=== PATIENT | female | born 1985 ===

== ENCOUNTER 2023-09-16 09:53 | Outpatient (CLI) | payer OTHER ==
[2023-09-16 10:14] LABS: URINE APPEARANCE Clear; URINE BILIRRUBIN Negative (NEGATIVE); URINE BLOOD Negative; URINE COLOR Yellow; URINE GLUCOSE Negative (NEGATIVE); URINE LEUKOCYTE Trace; URINE NITRATE Negative; URINE PROTEIN Negative (NEGATIVE)
[2023-09-16 10:17] LABS: URINE BACTERIA 2188.6 uL (0.0-1933); URINE EPITHELIAL CELLS 33.9 uL (0.0-38.8); URINE RBC 6.1 uL (0.0-20.8); URINE WBC 23.1 uL (0.0-23.2)
[2023-09-16 10:23] LABS: HEMATOCRIT 37.9 % (36.0-45.00); HEMOGLOBIN 12.7 g/dL (12.0-15.00); MEAN CELL VOLUME 77.5 fL (80.00-100.00); MEAN CORPUSCULAR HEMOGLOBIN 26.1 pg (27.00-32.0); MEAN CORPUSCULAR HGB CONC 33.6 g/dl (32.0-36.0); PLATELET COUNT 332 K/uL (150-450); RED BLOOD COUNT 4.89 M/uL (4.00-6.00); RED CELL DISTRIBUTION WIDTH 14.9 % (11.5-14.5)
[2023-09-16 11:36] LABS: ALBUMIN 3.9 gm/dL (3.4-5.0); BILIRUBIN TOTAL 0.38 mg/dL (0.3-1.2); CALCIUM 8.7 mg/dL (8.5-10.1); CHOL HDL RATIO 3.4 (0-5.0); CREATININE SERUM 0.69 mg/dL (0.55-1.02); GFR 96.27; GLOBULINA 3.5 G/DL (2.4-3.5); POTASSIUM 4.42 mEq/L (3.5-5.1); TOTAL PROTEIN 7.4 gm/dL (6.4-8.2); TSH 0.716 uIU/mL (0.358-3.74)
[2023-09-19 05:05] LABS: CA 125 10.9 U/mL (0.0-38.1); FOLLICLE STIMULATING HORMONE 4.9 mIU/mL (.)
== END 2023-09-16 09:54 | disposition home or self-care (01) ==
LOC: LAB 09:53
DX: E03.9 Hypothyroidism, unspecified (principal); E16.2 Hypoglycemia, unspecified; E78.5 Hyperlipidemia, unspecified; E55.9 Vitamin D deficiency, unspecified; Z12.11 Encounter for screening for malignant neoplasm of colon; N91.1 Secondary amenorrhea; E22.1 Hyperprolactinemia

== ENCOUNTER 2023-10-11 07:21 | Outpatient (CLI) | payer OTHER | END 2023-10-11 07:25 | disposition home or self-care (01) | LOC: SONOGRAMA 07:21 | PROVIDERS: ATTEND Specialist | DX: D35.2 Benign neoplasm of pituitary gland (principal) ==

== ENCOUNTER 2023-12-29 09:14 | Outpatient (CLI) | payer OTHER ==
[2023-12-29 09:50] LABS: HEMATOCRIT 38.2 % (36.0-45.00); HEMOGLOBIN 12.8 g/dL (12.0-15.00); MEAN CELL VOLUME 76.7 fL (80.00-100.00); MEAN CORPUSCULAR HEMOGLOBIN 25.7 pg (27.00-32.0); MEAN CORPUSCULAR HGB CONC 33.5 g/dl (32.0-36.0); PLATELET COUNT 337 K/uL (150-450); RED BLOOD COUNT 4.97 M/uL (4.00-6.00); RED CELL DISTRIBUTION WIDTH 15.5 % (11.5-14.5)
[2023-12-29 09:52] LABS: URINE APPEARANCE Clear; URINE BILIRRUBIN Negative (NEGATIVE); URINE BLOOD Negative; URINE COLOR Yellow; URINE GLUCOSE Negative (NEGATIVE); URINE KETONE Negative (NEGATIVE); URINE LEUKOCYTE Negative; URINE NITRATE Negative; URINE PROTEIN Negative (NEGATIVE)
[2023-12-29 09:56] LABS: URINE BACTERIA 575.8 uL (0.0-1933); URINE EPITHELIAL CELLS 7.8 uL (0.0-38.8); URINE RBC 4.2 uL (0.0-20.8); URINE WBC 14.1 uL (0.0-23.2)
[2023-12-29 10:10] LABS: INR 1.01; PARTIAL THROMBOPLASTIN TIME 29.3 SECONDS (22.0-34.0)
[2023-12-29 10:20] LABS: URINE CAST 0.15 uL (0.0-1.40)
[2023-12-29 10:27] LABS: CALCIUM 9.3 mg/dL (8.5-10.1); CREATININE SERUM 0.65 mg/dL (0.55-1.02); GFR 103.13; POTASSIUM 4.12 mEq/L (3.5-5.1)
== END 2023-12-29 09:15 | disposition home or self-care (01) ==
LOC: LAB 09:14
PROVIDERS: ATTEND Specialist
DX: E03.9 Hypothyroidism, unspecified (principal); E16.2 Hypoglycemia, unspecified; E78.5 Hyperlipidemia, unspecified; E55.9 Vitamin D deficiency, unspecified; Z12.11 Encounter for screening for malignant neoplasm of colon; N91.1 Secondary amenorrhea; E22.1 Hyperprolactinemia; J20.9 Acute bronchitis, unspecified

== ENCOUNTER 2024-05-27 08:44 | Outpatient (CLI) | payer OTHER ==
[2024-05-27 09:53] LABS: PH,URINE 6.5 (5.0-8.0); URINE APPEARANCE Clear; URINE BILIRRUBIN Negative (NEGATIVE); URINE BLOOD Moderate; URINE COLOR Yellow; URINE GLUCOSE Negative (NEGATIVE); URINE KETONE Negative (NEGATIVE); URINE LEUKOCYTE Negative; URINE NITRATE Negative; URINE PROTEIN Negative (NEGATIVE)
[2024-05-27 09:56] LABS: URINE BACTERIA 15.9 uL (0.0-1933); URINE EPITHELIAL CELLS 10.1 uL (0.0-38.8); URINE RBC 357.6 uL (0.0-20.8); URINE WBC 13.2 uL (0.0-23.2)
[2024-05-27 10:05] LABS: URINE CAST 0.29 uL (0.0-1.40)
[2024-05-27 10:26] LABS: HEMATOCRIT 39.4 % (36.0-45.00); HEMOGLOBIN 13.3 g/dL (12.0-15.00); MEAN CELL VOLUME 78.1 fL (80.00-100.00); MEAN CORPUSCULAR HEMOGLOBIN 26.5 pg (27.00-32.0); MEAN CORPUSCULAR HGB CONC 33.9 g/dl (32.0-36.0); PLATELET COUNT 351 K/uL (150-450); RED BLOOD COUNT 5.04 M/uL (4.00-6.00); RED CELL DISTRIBUTION WIDTH 15.6 % (11.5-14.5)
[2024-05-27 10:28] LABS: INR 1.06; PARTIAL THROMBOPLASTIN TIME 27.3 SECONDS (22.0-34.0); PROTHROMBIN TIME 11.5 SECONDS (9.0-11.5)
[2024-05-27 10:57] LABS: CALCIUM 9.2 mg/dL (8.5-10.1); CREATININE SERUM 0.86 mg/dL (0.55-1.02); GFR 74.25; POTASSIUM 4.29 mEq/L (3.5-5.1)
== END 2024-05-27 08:53 | disposition home or self-care (01) ==
LOC: RAD 08:44 → LAB 08:44 → RAD 08:53
PROVIDERS: ATTEND Specialist
DX: E03.9 Hypothyroidism, unspecified (principal); E16.2 Hypoglycemia, unspecified; E78.5 Hyperlipidemia, unspecified; E55.9 Vitamin D deficiency, unspecified; Z12.11 Encounter for screening for malignant neoplasm of colon; N91.1 Secondary amenorrhea; E22.1 Hyperprolactinemia; J20.9 Acute bronchitis, unspecified

== ENCOUNTER 2024-08-29 10:59 | Outpatient (CLI) | payer OTHER | END 2024-08-29 11:04 | disposition home or self-care (01) | LOC: LAB 10:59 | PROVIDERS: ATTEND Specialist | DX: A60.00 Herpesviral infection of urogenital system, unspecified (principal) ==

== ENCOUNTER 2024-11-23 10:04 | Outpatient (CLI) | payer OTHER ==
[2024-11-26 09:11] LABS: ESTRADIOL SERUM 122.0 pg/mL (.)
== END 2024-11-23 23:00 | disposition home or self-care (01) ==
LOC: LAB 10:04
PROVIDERS: ATTEND Specialist
DX: E03.9 Hypothyroidism, unspecified (principal); E16.2 Hypoglycemia, unspecified; E78.2 Mixed hyperlipidemia; E55.9 Vitamin D deficiency, unspecified; Z12.11 Encounter for screening for malignant neoplasm of colon; N91.1 Secondary amenorrhea; E22.1 Hyperprolactinemia